=== PATIENT | female | born 1950 | race African-American/Black ===

== ENCOUNTER 2018-12-01 21:28 | Emergency (ER) | payer OTHER ==
--- OUTSIDE RECORDS SUMMARY | 2018-12-01 21:32 | XMS REPORT | Clinical Summary ---
:1950 Author Organization [facility] Address [address] [place] [address] Care Team Providers Name Role Phone Kwame Cardenas MD Primary Care Provider Allergies Active Allergy Reactions Severity Noted Date Comments Codeine 07/12/2016 Latex Swelling 06/23/2016 Penicillins 07/12/2016 Medications Medication Sig Dispensed Refills Start Date End Date Status metFORMIN (GLUCOPHAGE) 500 Take 500 mg 0 Active MG tablet by mouth 2 (two) times a day with meals. omeprazole (PriLOSEC) 20 MG Take 20 mg by 0 Active capsule mouth daily. losartan (COZAAR) 100 MG Take 100 mg 0 Active tablet by mouth nightly. levothyroxine (SYNTHROID, Take 100 mcg 0 Active LEVOTHROID) 100 MCG tablet by mouth every morning. atenolol (TENORMIN) 25 MG Take 25 mg by 0 Active tablet mouth daily. hydrochlorothiazide Take 25 mg by 0 Active (HYDRODIURIL) 25 MG tablet mouth daily. cyanocobalamin 1000 MCG Take 1,000 0 Active tablet mcg by mouth daily. ascorbic acid, vitamin C, Take 500 mg 0 Active (VITAMIN C) 500 MG tablet by mouth daily. cholecalciferol, vitamin Take 1,000 0 Active D3, (VITAMIN D3) 1,000 unit Units by tablet mouth daily. vitamin E 400 UNIT capsule Take 400 0 Active Units by mouth daily. CALCIUM CARBONATE/VITAMIN Take by 0 Active D3 (CALCIUM 600 + D,3, mouth. ORAL) glucosamine-chondroitin Chew. 0 Active 750-600 mg tablet,chewable chlorpheniramine Take 12 mg by 0 Active (CHLOR-TRIMETON) 4 mg mouth every 6 tablet (six) hours as needed for allergies. denosumab (PROLIA) 60 mg/mL Inject 60 mg 0 Active syringe syringe under the skin every 6 (six) months. Active Problems Problem Noted Date Osteoarthritis of left knee 07/13/2016 Immunizations Name Dates Previously Given Next Due FLUCELVAX QUAD PF (0.5mL syringe) 07/14/2016 Family History Medical History Relation Name Comments Hypertension Father Stroke Father Hypertension Mother Stroke Mother Diabetes Sister Relation Name Status Comments Father Mother Sister Social History Tobacco Use Types Packs/Day Years Used Date Never Smoker Alcohol Use Drinks/Week oz/Week Comments No Sex Assigned at Date Recorded Not on file Job Start Date Occupation Industry Not on file Not on file Not on file Travel History Travel Start Travel End No recent travel history available. Last Filed Vital Signs Not on file Plan of Treatment Health Maintenance Due Date Last Done Comments BREAST CANCER SCREENING 1998 COLON CANCER SCREENING 1998 SHINGLES VACCINES (#1) 1998 65+ PNEUMOCOCCAL VACCINE (1 of 2 - PCV13) 2013 PNEUMOCOCCAL POLYSACCHARIDE VACCINE AGE 65 AND OVER 2013 INFLUENZA VACCINE 05/10/2018 07/14/2016 Implants Implanted Type Area Italian Tutor Device Shelf Model / Identifier Expiration Serial / Lot Date As Tibial Obturator D12mm - [id number] IMPLANT N/A: AESCULA 2025 [id number] / Implanted: Qty: 1 on 07/13/2016 by Brandon Wilburn MD DEVICES N/A IMPLANT SYSTEMS / - ORTHOPAEDICS [id number] As Chris Ps Tibial Plat.Cemented T1+, Tray, Coated - Cemented Advanced - [id number] [id number] IMPLANT Left: AESCULA 10/09/2025 [id number] / Implanted: Qty: 1 on 07/13/2016 by Brandon Wilburn MD DEVICES Knee IMPLANT SYSTEMS / - ORTHOPAEDICS [id number] As Chris Ps Femoral Comp.Cement. F2l - [id number] [id number] IMPLANT Left: AESCULA 02/06/2022 [id number] / Implanted: Qty: 1 on 07/13/2016 by Brandon Wilburn MD DEVICES Knee IMPLANT SYSTEMS / - ORTHOPAEDICS [id number] Chris Ps Gliding Surface T1/T1+ 10mm, Insert - Advanced - [id number] [id number] IMPLANT Left: AESCULAP 02/06/2021 [id number] / Implanted: Qty: 1 on 07/13/2016 by Brandon Wilburn MD DEVICES Knee IMPLANT SYSTEMS / - ORTHOPAEDICS [id number] Basic Procedure Charge - [id number] [id number] SUPPLIES N/A: AESCULAP 2024 [id number] / Implanted: Qty: 1 on 07/14/2016 by Brandon Wilburn MD PATIENT N/A IMPLANT SYSTEMS / NON-BILLABLE - ORTHOPAEDICS NA Cement Bone R+G 1dose [place] - [id number] Knee Joint Left: [employer] [id number] / Implanted: Qty: 1 on 07/13/2016 by Brandon Wilburn MD Implants Knee / [id number] Pin Headls Thred Univl 3.2x63mm Kanu - [id number] Knee Joint N/A: AESCULAP ORTHO 07/10/2025 [id number] / Implanted: Qty: 6 on 07/14/2016 by Brandon Wilburn MD Implants N/A / NA Pin Fxtn W/O Head 3.2x88mm - [id number] Knee Joint N/A: AESCULAP ORTHO 10/2024 [id number] / Implanted: Qty: 2 on 07/14/2016 by Brandon Wilburn MD Implants N/A / NA Pin Headed Thred Univl 3.2x25mm [place] - [id number] Knee Joint N/A: AESCULAP ORTHO 07/10/2025 [id number] / Implanted: Qty: 2 on 07/14/2016 by Brandon Wilburn MD Implants N/A / NA Patella Knee 3 Peg P2 30x8mm Kanu - [id number] Orthopedic Left: AESCULAP ORTHO 11/09/2020 [id number] / Implanted: Qty: 1 on 07/13/2016 by Brandon Wilburn MD Trauma Knee / Implants [id number] Results Not on fileafter 11/30/2017 Insurance Payer Benefit Plan / Group Subscriber ID Type Phone Address MEDICARE MEDICARE PART A AND B xxxxxxxxxx Medicare [place], [place] [facility] x[facility]x Commercial [place] [address] Advance Directives Patient has advance care planning documents on file. For more information, please contact:Eber Villegas[address] [place] [address]
--- OUTSIDE RECORDS SUMMARY | 2018-12-01 21:32 | XMS REPORT ---
:1950 [facility] Address [address] [place] [address] Dr. Moreira [address] [place] [id number] Care Team Providers Name Role Phone Unavailable Unavailable Unavailable Problems This patient has no known problems. Allergies, Adverse Reactions, Alerts This patient has no known allergies or adverse reactions. Medications This patient has no known medications.
[2018-12-01] MEDS ORDERED: NA CHLORIDE 0.9% 1,000 ML ONE (22:48)
[2018-12-01] MEDS ORDERED: ONDANSETRON 4 MG/2 ML VIAL ONE (22:48)
[2018-12-01 23:09] LABS: Absolute Lymphocytes (CBC) 0.2 K/uL (0.7-4.9); Absolute Monocytes 0.3 K/uL (0.1-1.3); Absolute Neutrophil 8.8 K/uL (1.8-8.0); Basophils % 0.3 % (0-1.3); Eosinophils % 0.7 % (0-4.4); Hematocrit 45.4 % (36.0-45.0); Lymphocytes % 2.3 % (15.3-44.8); MPV 8.5 fL (7.6-11.3); RBC Red Blood Cell Count 5.12 M/uL (3.86-4.86)
[2018-12-01 23:21] LABS: Albumin 4.2 g/dL (3.4-5.0); Bilirubin Direct 0.4 mg/dL (0-0.2); Bilirubin Total 1.6 mg/dL (0.2-1.0); Magnesium 2.1 mg/dL (1.8-2.4); Potassium 3.5 mmol/L (3.5-5.1)
--- NOTE | 2018-12-02 00:44 | EDPHYS ---
Physician Documentation [facility] Name: Cindy Earl Age: 68 yrs Sex: Female : 1950 Arrival Date: 12/01/2018 Time: 21:36 Bed 23 Private MD: ED Physician Raheem Nagel HPI: 12/02 00:46 This 68 yrs old Black Female presents to ER via EMS with complaints of gs Nausea/Vomiting/Diarrhea. 00:46 The patient presents to the emergency department with vomiting, diarrhea. Onset: The gs symptoms/episode began/occurred yesterday, at 08:00. Possible causes: unknown. The symptoms are aggravated by nothing. The symptoms are alleviated by nothing. Associated signs and symptoms: Pertinent negatives: abdominal pain, fever, GI bleeding. Severity of symptoms: At their worst the symptoms were severe in the emergency department the symptoms have improved markedly. The patient has experienced similar episodes in the past, a few times. The patient has not recently seen a physician. Historical: - Allergies: 12/01 21:48 Latex, Natural Rubber; lp1 21:48 PENICILLINS; lp1 21:48 Codeine; lp1 21:48 War; lp1 21:48 Celecoxib; lp1 21:48 tramadol; lp1 21:48 Lidocaine; lp1 - Home Meds: 21:48 metformin 500 mg Oral Tb24 1 tab once daily [Active]; omeprazole 20 mg Oral cpDR 1 cap lp1 once daily [Active]; losartan 100 mg oral tab 1 tab once daily [Active]; levothyroxine 75 mcg tab 1 tab once daily [Active]; carvedilol 3.125 mg oral tab 1 tab 2 times per day [Active]; hydrochlorothiazide 25 mg Oral tab 1 tab once daily [Active]; aspirin 81 mg Oral TbEC 1 tab once daily [Active]; citalopram 10 mg tab 1 tab once daily [Active]; cetirizine 10 mg oral tab 1 tab once daily [Active]; - PMHx: 21:48 Diabetes - NIDDM; Hypertension; Hypothyroidism; GERD; Anxiety; Hyperlipidemia; lp1 - PSHx: 21:48 Hysterectomy; Cornea transplant- L eye; L knee surgery; lp1 - Immunization history:: Adult Immunizations up to date. - Social history:: Smoking status: Patient/guardian denies using tobacco, never smoked. - Ebola Screening: : No symptoms or risks identified at this time. ROS: 12/02 00:46 All other systems are negative. gs Exam: 00:46 Head/Face: Normocephalic, atraumatic. Eyes: Pupils equal round and reactive to light, gs extra-ocular motions intact. Lids and lashes normal. Conjunctiva and sclera are non-icteric and not injected. Cornea within normal limits. Periorbital areas with no swelling, redness, or edema. ENT: Nares patent. No nasal discharge, no septal abnormalities noted. Tympanic membranes are normal and external auditory canals are clear. Oropharynx with no redness, swelling, or masses, exudates, or evidence of obstruction, uvula midline. Mucous membranes moist. Neck: Trachea midline, no thyromegaly or masses palpated, and no cervical lymphadenopathy. Supple, full range of motion without nuchal rigidity, or vertebral point tenderness. No Meningismus. Chest/axilla: Normal chest wall appearance and motion. Nontender with no deformity. No lesions are appreciated. Cardiovascular: Regular rate and rhythm with a normal S1 and S2. No gallops, murmurs, or rubs. Normal PMI, no JVD. No pulse deficits. Respiratory: Lungs have equal breath sounds bilaterally, clear to auscultation and percussion. No rales, rhonchi or wheezes noted. No increased work of breathing, no retractions or nasal flaring. Back: No spinal tenderness. No costovertebral tenderness. Full range of motion. Skin: Warm, dry with normal turgor. Normal color with no rashes, no lesions, and no evidence of cellulitis. MS/ Extremity: Pulses equal, no cyanosis. Neurovascular intact. Full, normal range of motion. Neuro: Awake and alert, GCS 15, oriented to person, place, time, and situation. Cranial nerves II-XII grossly intact. Motor strength 5/5 in all extremities. Sensory grossly intact. Cerebellar exam normal. Normal gait. 00:46 Constitutional: The patient appears alert, awake. 00:46 Abdomen/GI: Inspection: abdomen appears normal, Palpation: nontender, in all quadrants, rebound tenderness, is not appreciated. Vital Signs: 12/01 21:42 BP 177 / 62; Pulse 71; Resp 17; Temp 99.5(O); Pulse Ox 100% on R/A; Weight 67.59 kg; lp1 Height 5 ft. 4 in. (162.56 cm); Pain 0/10; 22:04 BP 151 / 55; Pulse 69; Resp 17; Pulse Ox 97% on R/A; lp1 23:46 BP 159 / 67; Pulse 68; Resp 18; Pulse Ox 98% on R/A; Pain 0/10; mg2 21:42 Body Mass Index 25.58 (67.59 kg, 162.56 cm) lp1 MDM: 22:27 Patient medically screened. 12/02 00:46 Differential diagnosis: Nonspecific abd pain, pancreatitis, viral gastroenteritis, gs gastroenteritis. Data reviewed: vital signs, nurses notes, lab test result(s). Response to treatment: the patient's symptoms have markedly improved after treatment, the patient's symptoms have resolved after treatment, the patient's condition has returned to base line, and as a result, I will discharge patient. 12/01 22:30 Order name: Basic Metabolic Panel 12/01 22:30 Order name: CBC with Diff 12/01 22:30 Order name: Hepatic Function 12/01 22:30 Order name: Lipase 12/01 22:30 Order name: Urine Microscopic Only 12/01 22:51 Order name: Magnesium mg2 12/01 23:13 Order name: CBC with Automated Diff [facility] 12/01 23:22 Order name: Basic Metabolic Panel; Complete Time: 00:23 EDMS 12/01 23:22 Order name: Liver (Hepatic) Function; Complete Time: 00:23 EDMS 12/01 23:22 Order name: Magnesium; Complete Time: 00:23 EDMS 12/01 23:22 Order name: Lipase; Complete Time: 00:23 EDMS 12/01 23:44 Order name: Urine Dipstick--Ancillary (enter results) ar5 12/01 22:30 Order name: IV Saline Lock; Complete Time: 22:52 12/01 22:30 Order name: Labs collected and sent; Complete Time: 22:52 12/01 22:30 Order name: Urine Dipstick-Ancillary (obtain specimen); Complete Time: 23:42 Administered Medications: 12/01 22:57 Drug: NS 0.9% 1000 ml Route: IV; Rate: 1 bolus; Site: right forearm; mg2 23:41 Follow up: Response: No adverse reaction; IV Status: Completed infusion mg2 22:58 Drug: Zofran 4 mg Route: IVP; Site: right forearm; mg2 23:41 Follow up: Response: No adverse reaction; Marked relief of symptoms mg2 Disposition: 12/02/18 00:43 Discharged to Home. Impression: Vomiting, Diarrhea, unspecified. - Condition is Stable. - Discharge Instructions: Diarrhea, Adult, Nausea and Vomiting, Adult. - Prescriptions for Zofran 4 mg Oral Tablet - take 1 tablet by ORAL route every 8 hours As needed; 12 tablet. - Medication Reconciliation Form, Thank You Letter, Antibiotic Education, Prescription Opioid Use form. - Follow up: Private Physician; When: 2 - 3 days; Reason: Re-evaluation by your physician. Signatures: Dispatcher [employer] EDSerena Flores RN RN lp1 Raheem Nagel MD MD gs Lexx Garcia RN RN mg2 Corrections: (The following items were deleted from the chart) 12/02 01:00 00:43 12/02/2018 00:43 Discharged to Home. Impression: Vomiting; Diarrhea, unspecified. mg2 Condition is Stable. Forms are Medication Reconciliation Form, Thank You Letter, Antibiotic Education, Prescription Opioid Use. Follow up: Private Physician; When: 2 - 3 days; Reason: Re-evaluation by your physician. gs
--- NOTE | 2018-12-02 00:44 | ER ---
Nurse's Notes [facility] Name: Cinyd Earl Age: 68 yrs Sex: Female : 1950 Arrival Date: 12/01/2018 Time: 21:36 Bed 23 Private MD: Diagnosis: Vomiting;Diarrhea, unspecified Presentation: 12/01 21:41 Presenting complaint: EMS states: Vomiting and diarrhea since this morning, feeling lp1 weak throughout day; Denies any fever, abdominal pain; Nausea relieved by Zofran administered by EMS. Transition of care: patient was not received from another setting of care. Onset of symptoms was December 01, 2018. Risk Assessment: Do you want to hurt yourself or someone else? Patient reports no desire to harm self or others. Care prior to arrival: Medication(s) given: zofran 4 mg, IV initiated. 20 GA, in the right forearm, Glucose check: 148. 21:41 Method Of Arrival: EMS: [facility] lp1 21:41 Acuity: ANA 3 lp1 21:43 Initial Sepsis Screen: Does the patient meet any 2 criteria? No. Patient's initial lp1 sepsis screen is negative. Does the patient have a suspected source of infection? No. Patient's initial sepsis screen is negative. Historical: - Allergies: 21:48 Latex, Natural Rubber; lp1 21:48 PENICILLINS; lp1 21:48 Codeine; lp1 21:48 [place]; lp1 21:48 Celecoxib; lp1 21:48 tramadol; lp1 21:48 Lidocaine; lp1 - Home Meds: 21:48 metformin 500 mg Oral Tb24 1 tab once daily [Active]; omeprazole 20 mg Oral cpDR 1 cap lp1 once daily [Active]; losartan 100 mg oral tab 1 tab once daily [Active]; levothyroxine 75 mcg tab 1 tab once daily [Active]; carvedilol 3.125 mg oral tab 1 tab 2 times per day [Active]; hydrochlorothiazide 25 mg Oral tab 1 tab once daily [Active]; aspirin 81 mg Oral TbEC 1 tab once daily [Active]; citalopram 10 mg tab 1 tab once daily [Active]; cetirizine 10 mg oral tab 1 tab once daily [Active]; - PMHx: 21:48 Diabetes - NIDDM; Hypertension; Hypothyroidism; GERD; Anxiety; Hyperlipidemia; lp1 - PSHx: 21:48 Hysterectomy; Cornea transplant- L eye; L knee surgery; lp1 - Immunization history:: Adult Immunizations up to date. - Social history:: Smoking status: Patient/guardian denies using tobacco, never smoked. - Ebola Screening: : No symptoms or risks identified at this time. Screenin:49 Abuse screen: Denies threats or abuse. Denies injuries from another. Nutritional lp1 screening: No deficits noted. Tuberculosis screening: No symptoms or risk factors identified. Fall Risk None identified. Assessment: 21:49 Reassessment: Patient states nausea relief at this time. General: Appears in no lp1 apparent distress. Behavior is appropriate for age. Pain: Denies pain. Neuro: Level of Consciousness is awake, alert, obeys commands, Oriented to person, place, time, situation, Pupils are PERRLA. Cardiovascular: Patient's skin is warm and dry. Respiratory: Airway is patent Respiratory effort is even, unlabored, Respiratory pattern is regular, Breath sounds are clear bilaterally. GI: Abdomen is non-distended, Bowel sounds present X 4 quads. Reports diarrhea, vomiting. : No signs and/or symptoms were reported regarding the genitourinary system. EENT: No signs and/or symptoms were reported regarding the EENT system. Derm: Skin is intact, Skin is dry, Skin is normal. Musculoskeletal: Circulation, motion, and sensation intact. 23:46 Reassessment: Patient denies pain at this time. mg2 12/02 00:57 Reassessment: no vomiting noted. mg2 Vital Signs: 12/01 21:42 BP 177 / 62; Pulse 71; Resp 17; Temp 99.5(O); Pulse Ox 100% on R/A; Weight 67.59 kg; lp1 Height 5 ft. 4 in. (162.56 cm); Pain 0/10; 22:04 BP 151 / 55; Pulse 69; Resp 17; Pulse Ox 97% on R/A; lp1 23:46 BP 159 / 67; Pulse 68; Resp 18; Pulse Ox 98% on R/A; Pain 0/10; mg2 21:42 Body Mass Index 25.58 (67.59 kg, 162.56 cm) lp1 ED Course: 21:36 Patient arrived in ED. ds1 21:39 Raheem Nagel MD is Attending Physician. gs 21:40 Serena Samuels, RN is Primary Nurse. lp1 21:42 Triage completed. lp1 21:43 Arm band placed on right wrist. lp1 21:49 Patient has correct armband on for positive identification. Placed in gown. Bed in low lp1 position. Call light in reach. threat monitoring analyst on. Pulse ox on. NIBP on. 22:30 No provider procedures requiring assistance completed. Maintain EMS IV. Dressing mg2 intact. Good blood return noted. Site clean \T\ dry. Gauge \T\ site: 20 \T\ RAC. 22:56 Initial lab(s) drawn, by me, sent to lab. jp3 22:57 Magnesium Sent. jp3 22: Basic Metabolic Panel Sent. jp3 22: CBC with Diff Sent. jp3 22: Hepatic Function Sent. jp3 22: Lipase Sent. jp3 12/02 00:12 Urine Dipstick--Ancillary (enter results) Sent. jp3 00:57 IV discontinued, intact, bleeding controlled, No redness/swelling at site. Pressure mg2 dressing applied. Administered Medications: 12/01 22:57 Drug: NS 0.9% 1000 ml Route: IV; Rate: 1 bolus; Site: right forearm; mg2 23:41 Follow up: Response: No adverse reaction; IV Status: Completed infusion mg2 22:58 Drug: Zofran 4 mg Route: IVP; Site: right forearm; mg2 23:41 Follow up: Response: No adverse reaction; Marked relief of symptoms mg2 Outcome: 12/02 00:43 Discharge ordered by . 00:57 Discharged to home ambulatory, with family. mg2 00:57 Condition: stable 00:57 Discharge instructions given to patient, family, Instructed on discharge instructions, follow up and referral plans. medication usage, Demonstrated understanding of instructions, follow-up care, medications, Prescriptions given X 1. 01:00 Patient left the ED. mg2 Signatures: Sandee Ordaz ds1 Serena Samuels, EVELINA RN lp1 Raheem Nagel MD MD Lexx Garcia RN RN mg2 Tobin Celaya jp3
[2018-12-02 01:25] VITALS: TEMP 99.5
[2018-12-02 01:28] VITALS: BP 159/67; O2SAT 98
[2018-12-02 01:28] LABS: Blood Morphology Comment NOT SEEN (NOT SEEN); Platelet Estimate ADEQ
[2018-12-02 01:37] LABS: Urine Blood NEGATIVE (NEG); Urine Glucose NEGATIVE (NEG); Urine Protein 1+ (NEG); Urine Specific Gravity 1.025 (1.005-1.030)
[2018-12-02 01:40] LABS: Urine Bacteria <20 /HPF (<20); Urine Culture Reflex Order NOT NEEDED; Urine Mucus 3+ /HPF (NONE SEEN); Urine RBC <5 /HPF (NONE SEEN)
== END 2018-12-02 01:00 | disposition home or self-care (01) ==
LOC: ER 21:28
DX: R11.2 Nausea with vomiting, unspecified (principal); R19.7 Diarrhea, unspecified; E11.9 Type 2 diabetes mellitus without complications; I10 Essential (primary) hypertension; E03.9 Hypothyroidism, unspecified; E78.5 Hyperlipidemia, unspecified; K21.9 Gastro-esophageal reflux disease without esophagitis; F41.9 Anxiety disorder, unspecified; Z79.84 Long term (current) use of oral hypoglycemic drugs
CPT/HCPCS: 36415; 80048; 80076; 83690; 83735; 85025; 96361; 96374; 99284; J2405; J7030; 81003; 81015

== ENCOUNTER 2022-08-20 07:00 | Day surgery (SDC) | payer OTHER ==
[2022-08-19 13:24] LABS: Absolute Lymphocytes (CBC) 1.5 K/uL (0.7-4.9); Hematocrit 40.4 % (36.0-45.0); MPV 7.8 fL (7.6-11.3); RBC Red Blood Cell Count 4.64 M/uL (3.86-4.86)
--- NOTE | 2022-08-19 13:31 | RAD REPORT ---
EXAM DESCRIPTION: RAD - Chest Pa And Lat (2 Views) - 08/19/2022 1:16 pm CLINICAL HISTORY: Pre op pending hemorroidectomy COMPARISON: CHEST SINGLE VIEW dated 10/06/2012; CHEST PA AND LAT 2 VIEW dated 11/02/2011; CHEST PA AN D LAT 2 VIEW dated 04/21/2011 FINDINGS: Lines: None. Lungs: No evidence of edema or pneumonia. Pleural: No significant pleural effusions or pneumothorax. Cardiac: The heart size is within normal limits. Mediastinum: Within normal limits. Bones: No acute fractures. Other: None IMPRESSION: No acute cardiopulmonary disease.
[2022-08-20] MEDS ORDERED: CEFOXITIN SODIUM 1 GM/VIAL ONE (07:35)
[2022-08-20] MEDS ORDERED: NA CHLORIDE 0.9% 1,000 ML ONE (07:35)
[2022-08-20] MEDS ORDERED: CELECOXIB 100 MG CAPSULE ONE (08:24)
[2022-08-20] MEDS ORDERED: ACETAMINOPHEN 500 MG TAB ONE (08:25)
[2022-08-20] MEDS ORDERED: BUPIVACAINE 0.5% PF 10 ML VIAL ONE (08:48)
[2022-08-20] MEDS ORDERED: LIDOCAINE 1% MPF 5 ML VIAL ONE (09:12)
[2022-08-20] MEDS ORDERED: propofoL 200 MG/20 ML VIAL IV ONE (09:12)
[2022-08-20] MEDS ORDERED: FENTANYL CITR 100 MCG/2 ML ONE (09:12)
[2022-08-20] MEDS ORDERED: NS 0.9% VIAL 10 ML ONE (09:22)
[2022-08-20] MEDS ORDERED: ONDANSETRON 4 MG/2 ML VIAL ONE (09:34)
[2022-08-20] MEDS ORDERED: KETOROLAC 30 MG/ML INJ ONE (09:47)
--- NOTE | 2022-08-20 10:13 | P.OP ---
Date of Service: 08/20/22 Preop diagnosis: Thrombosed hemorrhoid Postop diagnosis: Same Procedure performed: Exam under anesthesia, rigid proctoscopy and hemorr hoidectomy Surgeon: Breezy Marcum MD Computer Operations Analyst: None Estimated blood loss: Minimal Specimen: Right lateral thrombosed hemorrhoid Findings: As above Anesthesia: General Complications: None Drains: None Fluids and blood products: Not applicable Disposition: Recovery room Operative note: Patient brought to the OR and placed in the supine position. General anesthesia begun. Patient placed in the lithotomy position and prepped and draped in usual sterile fashion. Exam anesthesia revealed a thrombosed right lateral hemorrhoid. Proctoscopy confirmed the findings. No other evidence of disease was identified. Then, harmonic scalpel was used to excise the thrombosed hemorrhoid. No bleeding was noted. Marcaine 0.5% was infiltrated for postop pain control. Sterile dressing was applied. Patient was awakened and taken to recovery room in good general condition. CC:
[2022-08-20] MEDS ORDERED: GLYCOPYRROLATE 0.2 MG/ML SYR ONE ×2 (10:27→10:32)
[2022-08-20] MEDS ORDERED: ATROPINE SULF 1 MG/10 ML SYR IV ONE (10:31)
[2022-08-20 11:03] VITALS: O2SAT 97
[2022-08-20 14:52] VITALS: BP 116/51; TEMP 96.3
--- NOTE | 2022-08-20 15:59 | EKG ---
Test Date: 2022-08-19 Test Time: 12:54:18 Public Bath Attendant: ANGEL MEASUREMENT RESULTS: Intervals: Rate: 58 NE: 178 QRSD: 94 QT: 390 QTc: 382 [place]: P: 46 NE: 178 QRS: -12 T: 25 INTERPRETIVE STATEMENTS: Sinus bradycardia Minimal voltage criteria for LVH, may be normal variant Borderline ECG Compared to ECG 10/05/2021 12:37:07 Left ventricular hypertrophy now present Sinus rhythm no longer present T-wave abnormality no longer present Electronically Signed On 08-20-22 15:57:54 CUT OUT STITCHER by Daniel Lorenzo
== END 2022-08-20 13:27 | disposition home or self-care (01) ==
LOC: OR 07:00
PROVIDERS: ATTEND Surgery
PROC: 06BY0ZC Excision of Hemorrhoidal Plexus, Open Approach (ICD-10-PCS; 2022-08-20)
PROC: 0DJD8ZZ Inspection of Lower Intestinal Tract, Via Natural or Artificial Opening Endoscopic (ICD-10-PCS; principal; 2022-08-20 08:30)
DX: K64.5 Perianal venous thrombosis (principal)
CPT/HCPCS: 93005; 85025; 80048; 36415; 82947 ×2; 88304; 71046; 45300; 46083; J2704; J3010; A4216; J7030; J0694; J2405; J2001

== ENCOUNTER → 2023-12-24 | Emergency (ER) | payer OTHER ==
--- NOTE | 2023-12-24 14:26 | RAD REPORT ---
EXAM DESCRIPTION: CT - [id number] - 12/24/2023 2:03 pm CLINICAL HISTORY: Trauma, head and neck injury. PAIN COMPARISON: Head C Spine Mpr Wo Con dated 01/25/2023; [id number] dated 04/21/2011 TECHNIQUE: Axial 5 mm thick images of the head were obtained. Axial 2 mm thick images of the cervical spine were obtained with sagittal and coronal reconstruction images generated and reviewed. All CT scans are performed using dose optimization technique as appropriate and may include automated exposure control or mA/KV adjustment according to patient size. FINDINGS: CT HEAD WITHOUT CONTRAST: No acute hemorrhage, hydrocephalus or extra-axial collection is identified.No areas of brain edema or midline shift. The paranasal sinuses and mastoids are clear.The calvarium is intact. CT CERVICAL SPINE WITHOUT CONTRAST: No fracture or subluxation.Moderate midcervical degenerative changes.No prevertebral soft tissues swe lling is identified. IMPRESSION: No acute intracranial or cervical spine findings.
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
[2023-12-24 15:58] VITALS: BP 136/59; TEMP 98.2; O2SAT 100
== END ==
LOC: ER 12:45
DX: S09.90XA Unspecified injury of head, initial encounter (principal); S16.1XXA Strain of muscle, fascia and tendon at neck level, initial encounter; Y04.8XXA Assault by other bodily force, initial encounter; Z88.0 Allergy status to penicillin; Z88.5 Allergy status to narcotic agent; Z88.6 Allergy status to analgesic agent; Z91.040 Latex allergy status
CPT/HCPCS: 70450; 72125; 99285